=== PATIENT | female | born 1965 | race Asian ===

== ENCOUNTER 2019-01-24 13:23 | Emergency (ER) | payer OTHER ==
--- NOTE | 2019-01-24 14:06 | RAD ---
Exam: Chest one view HISTORY:Chest pain Comparison: None FINDINGS: Cardiac silhouette: Normal Aorta: Unremarkable Pulmonary vessels: Normal Costophrenic angles: Clear LUNGS: No masses or consolidation. Bilateral nipple shadows are noted. Confirmation with nipple marke rs is recommended. Pneumothorax: None Osseous abnormalities: None IMPRESSION: 1. No acute cardiopulmonary process. 2. Bilateral nipple shadows. Confirmation with nipple markers
[2019-01-24 14:15] LABS: #Basophils 0.1 thou/uL (0.0-0.2); #Lymphocytes 2.1 thou/uL (1.20-3.40); #Monocytes 0.4 thou/uL (0.11-0.59); #Neutrophils 3.8 thou/uL (1.40-6.50); %Eosinophils 0.7 % (0.0-10.0); %Lymphocytes 33.1 % (21.0-51.0); %Monocytes 5.5 % (0.0-10.0); %Neutrophils 59.7 % (42.0-75.0); Hemoglobin 12.6 g/dL (12.0-16.0); Mean Corpuscular HGB CONC 34.6 g/dL (32.0-36.0); Mean Corpuscular Hemoglobin 32.6 pg (27.0-31.0); Mean Corpuscular Volume 94.1 fL (78.0-98.0); Mean Platelet Volume 7.5 fL (7.4-10.4); Platelet Count 252 thou/uL (130-400); RBC Distribution Width 12.8 % (11.5-14.5); Red Blood Cell (RBC) Count 3.86 mill/uL (4.20-5.40); White Blood Cell (WBC) Count 6.3 thou/uL (4.8-10.8)
[2019-01-24 14:35] LABS: ALT (SGPT) 11 U/L (8-55); AST (SGOT) 17 U/L (5-34); Alkaline Phosphatase 39 U/L (40-150); Anion Gap 11 mmol/L (10-20); BUN (Urea Nitrogen) 11 mg/dL (9.8-20.1); Bilirubin, Total 0.6 mg/dL (0.2-1.2); Calc. Creatinine Clearance 0 mL/min (70-130); Calcium 8.9 mg/dL (7.8-10.44); Carbon Dioxide 22 mmol/L (22-29); Chloride 109 mmol/L (98-107); Estimated GFR-MDRD 84; Globulin 2.4 g/dL (2.4-3.5); Glucose 81 mg/dL (70-105); Potassium 3.3 mmol/L (3.5-5.1); Protein, Total 6.4 g/dL (6.0-8.3); Sodium 139 mmol/L (136-145)
[2019-01-24] MEDS ORDERED: Potassium Chloride 20 MEQ TAB ONE (14:39)
[2019-01-24] MEDS ORDERED: Aspirin Chewable 81 MG TAB ONE (14:39)
[2019-01-24] MEDS ORDERED: Acetaminophen 500 MG TAB ONE (14:39)
[2019-01-24 17:21] LABS: Troponin I Less than 0.010 ng/mL (< 0.028)
--- NOTE | 2019-01-29 15:36 | EKG ---
Test Reason : Blood Pressure : / mmHG Vent. Rate : 069 BPM Atrial Rate : 069 BPM P-R Int : 160 ms QRS Dur : 078 ms QT Int : 446 ms P-R-T Axes : 069 068 035 degrees QTc Int : 477 ms Normal sinus rhythm Cannot rule out Anterior infarct , age undetermined Abnormal ECG Confirmed by KIRSTEN JOHN ([id number]), market editor YESI JEFFERSON ([id number]) on 01/29/2019 3:36:00 PM Referred By: Confirmed By:KIRSTEN JOHN
== END 2019-01-24 17:33 | disposition home or self-care (01) ==
LOC: ERS 13:23
DX: F43.0 Acute stress reaction (principal); R07.89 Other chest pain; E87.6 Hypokalemia; F17.210 Nicotine dependence, cigarettes, uncomplicated; Z79.899 Other long term (current) drug therapy
CPT/HCPCS: 36415; 71045; 80053; 84484; 85025; 93005